=== PATIENT | female | born 1980 | race African-American/Black ===

== ENCOUNTER 2017-11-05 09:01 | Emergency (ER) | payer MEDICAID ==
[~2017-11-05] VITALS: Ht 175.3 cm; Wt 73.0 kg
[2017-11-05 09:16] VITALS: BP 131/77
[2017-11-05] MEDS ORDERED: FLUORESCEIN SODIUM 1MG/STRIP OP ONE (10:15)
[2017-11-05] MEDS ORDERED: TETRACAINE 0.5% OPHTH DROPS 4ML OP ONE (10:15)
== END 2017-11-05 10:52 | disposition home or self-care (01) ==
LOC: ER 09:59
DX: H10.023 Other mucopurulent conjunctivitis, bilateral (principal); B34.9 Viral infection, unspecified; I10 Essential (primary) hypertension
CPT/HCPCS: 99283